=== PATIENT | female | born 1975 | race Caucasian/White ===

== ENCOUNTER 2016-07-17 16:12 | Emergency (ER) | payer BC ==
[~2016-07-17] VITALS: Ht 167.6 cm; Wt 61.5 kg
[~2016-07-17 16:12] MED LIST: AMLODIPINE BESY10 MG PO; AMLODIPINE BESYL5 MG PO; AMOXICILLIN500 MG PO; ASPIR-LOW81 MG; Ambien PO; Aspirin Chewable PO; BISOPROLOL-HCT1 EAC1 PO; C COMPLEX500 MG PO; CATAPRES0.2 MG PO; COUMADIN,JANTOV10 MG PO; COUMADIN10 MG PO; CYANOCOBALAMI100 MCG PO; Coumadin,Jantoven PO; ELIQUIS5 MG PO; FERROCITE324 MG PO; FIORICET,ESG1 TABLET PO; FOLIC ACID0.4 MG PO; FUROSEMIDE20 MG PO; FUROSEMIDE40 MG PO; Folvite PO; HYDROCHLOROTHIA50 MG PO; Hydrodiuril,Oretic,E PO; LABETALOL HCL200 MG PO; LOW DOSE ASPIRI81 M1 PO; MARTINIC1 EACH PO; NORVASC5 MG PO; Norvasc PO; Omnicef PO; PERCOCET 5/31 TABLET PO; PYRIDOXINE,VIT100 MG PO; SKELAXIN800 MG PO; TESSALON200 MG PO; TYLENOL EXTRA500 MG PO; TYLENOL REGULA325 MG PO; Tylenol Extra Streng PO; VENTOLIN HFA18 GM IH; VITAMIN B-6100 MG PO; VITAMIN B12 100MCG PO; VITAMIN C500 M1 PO; WARFARIN PO; WARFARIN SODIU2.5 MG PO; WARFARIN SODIU7.5 MG PO; WARFARIN SODIUM10 MG PO; ZOLPIDEM TARTRA10 MG PO; Zithromax PO
[2016-07-17] MEDS ORDERED: ULTRAM50 MG PO (17:18)
[2016-07-17 17:42] VITALS: BP 195/96
== END 2016-07-17 17:40 | disposition home or self-care (01) ==
LOC: EME 16:12
DX: S30.0XXA Contusion of lower back and pelvis, initial encounter (principal); W22.09XA Striking against other stationary object, initial encounter; Y92.012 Bathroom of single-family (private) house as the place of occurrence of the external cause; I10 Essential (primary) hypertension; F17.200 Nicotine dependence, unspecified, uncomplicated
CPT/HCPCS: 72220; 99281; 99283

== ENCOUNTER 2017-02-06 12:30 | Emergency (ER) | payer BC ==
[~2017-02-06] VITALS: Ht 167.6 cm; Wt 60.6 kg
[~2017-02-06 12:30] MED LIST changes: +ULTRAM50 MG PO
[2017-02-06 14:10] LABS: HEMATOCRIT 32.6 % (36.0-46.0); MCH 25.6 PG (29.0-34.0); MCHC 31.6 G/DL (30.0-36.0); MCV 81.1 FL (83-99); MEAN PLAT.VOLUME 8.3 uM^3 (9.5-12.4); PLATELET COUNT 209 K/uL (156-360); RBC DIS.WIDTH-CV 17.7 % (11.8-14.6); RBC DIS.WIDTH-SD 52.5 % (39-53); RED BLOOD COUNT 4.02 M/uL (3.80-5.20); WHITE BLOOD COUNT 5.8 K/uL (4.1-10.2)
[2017-02-06 14:18] LABS: CHLORIDE 104 mEq/L (99-109)
[2017-02-06 14:19] LABS: SODIUM 139 mEq/L (136-147)
[2017-02-06 14:21] LABS: GLUCOSE 87 mg/dL (70-99)
[2017-02-06 14:22] LABS: ANION GAP 10 MEQ/L (2-14)
[2017-02-06 14:23] LABS: TOTAL BILIRUBIN 0.5 mg/dL (0.0-1.0)
[2017-02-06 14:24] LABS: ALKALINE PHOSPHATASE 71 IU/L (3-129); GFR ESTIMATE (CALCULATED) 41 mL/min/
[2017-02-06 14:26] LABS: UREA NITROGEN (BUN) 17 mg/dL (9-23)
[2017-02-06 14:34] LABS: TROP-I INTERPRETATION NEGATIVE; TROPONIN-I 0.01 ng/mL (0.0-0.30)
[2017-02-06] MEDS ORDERED: LABETALOL HCL200 MG PO (15:16)
[2017-02-06 15:30] VITALS: BP 164/73
== END 2017-02-06 15:40 | disposition home or self-care (01) ==
LOC: EME 12:30
PROVIDERS: Nurse Practitioner Family
DX: I10 Essential (primary) hypertension (principal); R51 Headache; Z79.01 Long term (current) use of anticoagulants; I73.9 Peripheral vascular disease, unspecified; Z87.891 Personal history of nicotine dependence
CPT/HCPCS: 80053; 84484; 85027; 93005; 99281; 99284

== ENCOUNTER 2017-07-12 04:45 | Inpatient (IN) | payer BC ==
[~2017-07-12] VITALS: Ht 170.2 cm; Wt 62.5 kg
[2017-07-12 05:36] LABS: CARBON DIOXIDE (BICARBONATE) 25.6 MEQ/L (20-31)
[2017-07-12 05:46] LABS: CHLORIDE 103 mEq/L (99-109); POTASSIUM 3.5 mEq/L (3.7-5.4); SODIUM 134 mEq/L (136-147)
[2017-07-12 05:48] LABS: GLUCOSE 97 mg/dL (70-99)
[2017-07-12 05:49] LABS: HEMATOCRIT 28.7 % (36.0-46.0); HEMOGLOBIN 9.1 G/DL (11.9-15.5); MCH 26.2 PG (29.0-34.0); MCHC 31.7 G/DL (30.0-36.0); MCV 82.7 FL (83-99); PLATELET COUNT 283 K/uL (156-360); RBC DIS.WIDTH-CV 16.7 % (11.8-14.6); RBC DIS.WIDTH-SD 50.1 % (39-53); RED BLOOD COUNT 3.47 M/uL (3.80-5.20); WHITE BLOOD COUNT 6.7 K/uL (4.1-10.2)
[2017-07-12 05:52] LABS: CREATININE 1.4 mg/dL (0.6-1.3); GFR ESTIMATE (CALCULATED) 44 mL/min/; UREA NITROGEN (BUN) 18 mg/dL (9-23)
[2017-07-12 05:57] LABS: TROP-I INTERPRETATION NEGATIVE; TROPONIN-I 0.06 ng/mL (0.0-0.30)
[2017-07-12] MEDS ORDERED: NORVASC5 MG PO (07:46)
[2017-07-12] MEDS ORDERED: NORMODYNE,TRAN200 MG PO (07:47)
[2017-07-12 08:46] LABS: MAGNESIUM 2.2 mg/dL (1.3-2.7)
[2017-07-12 08:58] LABS: APPEARANCE CLEAR ((CLEAR)); BILIRUBIN NEGATIVE; BLOOD NEGATIVE; COLOR STRAW ((YELLOW)); GLUCOSE (STRIP) NEGATIVE; KETONES NEGATIVE; LEUKOCYTES NEGATIVE; NITRITE NEGATIVE; PROTEIN (STRIP) NEGATIVE; SPECIFIC GRAVITY 1.005 (1.000-1.030); UCUL ADDED? NO; UROBILINOGEN 0.2 MG/DL (0.2-1.0)
[2017-07-12 09:16] LABS: HDL CHOLESTEROL 31 MG/DL (Desirable>=50); LDL CHOLESTEROL 89 mg/dL (Desirable<100); NON-HDL CHOLESTEROL 104 mg/dL (Desirable<160); TOTAL CHOLESTEROL 135 mg/dL (Desirable<200); TRIGLYCERIDES 76 MG/DL (Normal: <150)
[2017-07-12 10:39] LABS: THYROTROPIN (TSH) 3.4 MIU/L (0.4-5.5)
[2017-07-12 10:41] LABS: TROP-I INTERPRETATION NEGATIVE; TROPONIN-I 0.08 ng/mL (0.0-0.30)
[2017-07-12 16:35] VITALS: BP 160/82
[2017-07-12 18:29] LABS: TROP-I INTERPRETATION NEGATIVE; TROPONIN-I 0.09 ng/mL (0.0-0.30)
[2017-07-12 21:14] VITALS: BP 149/75
[2017-07-13] VITALS (7 sets, daily range): BP systolic 127–181; BP diastolic 63–86
[2017-07-13 05:35] LABS: HEMATOCRIT 26.6 % (36.0-46.0); HEMOGLOBIN 8.1 G/DL (11.9-15.5); MCH 25.7 PG (29.0-34.0); MCHC 30.5 G/DL (30.0-36.0); MCV 84.4 FL (83-99); PLATELET COUNT 263 K/uL (156-360); RBC DIS.WIDTH-CV 16.6 % (11.8-14.6); RBC DIS.WIDTH-SD 51.3 % (39-53); RED BLOOD COUNT 3.15 M/uL (3.80-5.20); WHITE BLOOD COUNT 5.2 K/uL (4.1-10.2)
[2017-07-13 06:20] LABS: CHLORIDE 101 MEQ/L (99-109); CREATININE 1.7 MG/DL (0.6-1.3); GFR ESTIMATE (CALCULATED) 35 mL/min/; GLUCOSE 90 mg/dL (70-99); POTASSIUM 4.2 MEQ/L (3.7-5.4); SODIUM 134 MEQ/L (136-147); UREA NITROGEN (BUN) 21 mg/dL (9-23)
[2017-07-14 04:54] VITALS: BP 162/78
[2017-07-14] MEDS ORDERED: AMLODIPINE BESY10 MG PO (08:15)
[2017-07-14 08:22] VITALS: BP 178/82
[2017-07-14 08:26] LABS: HEMATOCRIT 27.1 % (36.0-46.0); HEMOGLOBIN 8.5 G/DL (11.9-15.5); MCH 26.2 PG (29.0-34.0); MCHC 31.4 G/DL (30.0-36.0); MCV 83.6 FL (83-99); PLATELET COUNT 257 K/uL (156-360); RBC DIS.WIDTH-CV 16.6 % (11.8-14.6); RBC DIS.WIDTH-SD 50.4 % (39-53); RED BLOOD COUNT 3.24 M/uL (3.80-5.20); WHITE BLOOD COUNT 4.5 K/uL (4.1-10.2)
[2017-07-14 08:49] LABS: CHLORIDE 100 MEQ/L (99-109); CREATININE 1.7 MG/DL (0.6-1.3); GFR ESTIMATE (CALCULATED) 35 mL/min/; GLUCOSE 87 mg/dL (70-99); POTASSIUM 4.7 MEQ/L (3.7-5.4); SODIUM 134 MEQ/L (136-147); UREA NITROGEN (BUN) 18 mg/dL (9-23)
[2017-07-14 11:09] VITALS: BP 137/77
[2017-07-14] MEDS ORDERED: HYDROCHLOROTHIA25 MG PO (11:52)
== END 2017-07-14 15:11 | disposition home or self-care (01) | DRG 189 ==
LOC: EME 04:45 → EDOF 07:21 → ENRESERV 07:26 → 4EAST 16:26
PROVIDERS: Emergency Medicine; Internal Medicine
DX: J96.01 Acute respiratory failure with hypoxia (principal); I13.0 Hypertensive heart and chronic kidney disease with heart failure and stage 1 through stage 4 chronic kidney disease, or unspecified chronic kidney disease; I50.33 Acute on chronic diastolic (congestive) heart failure; N17.9 Acute kidney failure, unspecified; I16.1 Hypertensive emergency; J98.11 Atelectasis; I42.9 Cardiomyopathy, unspecified; Z79.01 Long term (current) use of anticoagulants; Z91.19 Patient's noncompliance with other medical treatment and regimen; I27.20 Pulmonary hypertension, unspecified; I08.3 Combined rheumatic disorders of mitral, aortic and tricuspid valves; E87.6 Hypokalemia; N18.3 Chronic kidney disease, stage 3 (moderate); I73.9 Peripheral vascular disease, unspecified; Z87.891 Personal history of nicotine dependence; E87.2 Acidosis; I31.3 Pericardial effusion (noninflammatory); D68.9 Coagulation defect, unspecified; I74.09 Other arterial embolism and thrombosis of abdominal aorta
CPT/HCPCS: 71045; 71250; 76770; 80048; 80061; 81003; 82103 90; 82803; 83605; 83735; 83880; 84443; 84484; 85027; 87040; 90686; 93005; 93306; 94640; 94640 76; 99202; 99281; 99285; J1170; J1940; J2405; J2765; J7050; S0028